=== PATIENT | female | born 1985 | race Caucasian/White ===

== ENCOUNTER 2016-10-09 07:00 | Emergency (ER) | payer BC ==
--- NOTE | 2016-10-09 08:05 | EDM.PDOC ---
ED HPI GENERAL MEDICAL PROBLEM - General Chief Complaint: Upper Extremity Injury/Pain Stated Complaint: DIFFICULTY WITH HANDS Time Seen by Provider: 10/09/16 07:50 - History of Present Illness INITIAL COMMENTS - FREE TEXT/NARRATIVE: HISTORY AND PHYSICAL: History of present illness: Patient is a 31-year-old white female presents with a concern of bilateral wrist and hand pain she does not recall any injury. There's been no fever chills nausea vomiting or other complaints. Review of systems: As per history of present illness and below otherwise all systems reviewed and negative. Past medical history: As per history of present illness and as reviewed below otherwise noncontributory. Surgical history: As per history of present illness and as reviewed below otherwise noncontributory. Social history: No reported history of drug or alcohol abuse. Family history: As per history of present illness and as reviewed below otherwise noncontributory. Physical exam: HEENT: Atraumatic, normocephalic, pupils reactive, negative for conjunctival pallor or scleral icterus, mucous membranes moist, throat clear, neck supple, nontender, trachea midline. Lungs: Clear to auscultation, breath sounds equal bilaterally, chest nontender. Heart: S1S2, regular, negative for clicks, rubs, or JVD. Abdomen: Soft, nondistended, nontender. Negative for masses or hepatosplenomegaly. Negative for costovertebral tenderness. Pelvis: Stable nontender. Genitourinary: Deferred. Rectal: Deferred. Extremities: Patient has tenderness noted bilaterally over the volar aspect of wrist worse with compression of her median nerve at the level of the volar aspect of the wrist. She states this is somewhat acute in onset and does radiate to her hands bilaterally Neuro: Awake, alert, oriented. Cranial nerves II through XII unremarkable. Cerebellum unremarkable. Motor and sensory unremarkable throughout. Exam nonfocal. Diagnostics: X-ray bilateral wrists/hands Therapeutics: Velcro splint bilateral wrist Impression: #1 bilateral wrist pain etiology be determined Definitive disposition and diagnosis as appropriate pending reevaluation and review of above. Bilateral Hand Pain Score (Numeric/FACES): 10 - Related Data Allergies Allergy/AdvReac Type Severity Reaction Status Date / Time No Known Allergies Allergy Verified 10/09/16 07:20 Home Meds: Home Meds . [No Known Home Meds] 01/04/15 [History] Past Medical History - Past Health History Medical/Surgical History: Denies Medical/Surgical History - Infectious Disease History Infectious Disease History: Reports: Chicken Pox - Past Surgical History GI Surgical History: Reports: Appendectomy Social & Family History - Family History Family Medical History: Noncontributory - Tobacco Use Smoking Status *Q: Never Smoker Years of Tobacco use: 20 Packs/Tins Daily: 0.1 Second Hand Smoke Exposure: No - Alcohol Use Days Per Week of Alcohol Use: 2 Number of Drinks Per Day: 6 Total Drinks Per Week: 12 - Recreational Drug Use Recreational Drug Use: No ED ROS GENERAL - Review of Systems Review Of Systems: ROS reveals no pertinent complaints other than HPI. ED EXAM, GENERAL - Physical Exam Exam: See Below (See dictation) Course - Vital Signs Last Recorded V/S: Last Vital Signs Temp 37.1 C 10/09/16 07:18 Pulse 111 H 10/09/16 07:18 Resp 18 10/09/16 07:18 BP 138/90 10/09/16 07:18 Pulse Ox 99 10/09/16 07:18 - Orders/Labs/Meds Orders: Active Orders 24 hr Category Date Time Status Hand 2V Lt [CR] Stat Exams 10/09/16 07:25 Ordered Hand 2V Rt [CR] Stat Exams 10/09/16 07:25 Ordered Wrist Comp Min 3V Lt [CR] Stat Exams 10/09/16 07:25 Ordered Wrist Comp Min 3V Rt [CR] Stat Exams 10/09/16 07:25 Ordered Departure - Departure Time of Disposition: 07:53 Disposition: Home, Self-Care 01 Condition: Good Clinical Impression: Wrist pain - Discharge Information Forms: ED Department Discharge Additional Instructions: The following information is given to patients seen in the emergency department who are being discharged to home. This information is to outline your options for follow-up care. We provide all patients seen in our emergency department with a follow-up referral. The need for follow-up, as well as the timing and circumstances, are variable depending upon the specifics of your emergency department visit. If you don't have a primary care physician on staff, we will provide you with a referral. We always advise you to contact your personal physician following an emergency department visit to inform them of the circumstance of the visit and for follow-up with them and/or the need for any referrals to a consulting specialist. The emergency department will also refer you to a specialist when appropriate. This referral assures that you have the opportunity for followup care with a specialist. All of these measure are taken in an effort to provide you with optimal care, which includes your followup. Under all circumstances we always encourage you to contact your private physician who remains a resource for coordinating your care. When calling for followup care, please make the office aware that this follow-up is from your recent emergency room visit. If for any reason you are refused follow-up, please contact the [facility] emergency department at and asked to speak to the emergency department charge nurse. [facility] [address] [place] [id number] Ultram as prescribed splints as directed follow-up hand surgery above is discussed to return as needed as discussed - My Orders Last 24 Hours: My Active Orders 10/09/16 07:25 Hand 2V Lt [CR] Stat Hand 2V Rt [CR] Stat Wrist Comp Min 3V Lt [CR] Stat Wrist Comp Min 3V Rt [CR] Stat - Assessment/Plan Last 24 Hours: My Active Orders 10/09/16 07:25 Hand 2V Lt [CR] Stat Hand 2V Rt [CR] Stat Wrist Comp Min 3V Lt [CR] Stat Wrist Comp Min 3V Rt [CR] Stat
[2016-10-09] MEDS ORDERED: Ketorolac 60 MG/2 ML SDV IM ONE (08:10)
--- NOTE | 2016-10-09 08:36 | CR ---
EXAMINATION: Left hand and left wrist HISTORY: Pain COMPARISON: None TECHNIQUE: 2 views of the left hand and 3 views of the left wrist. FINDINGS: There is no acute osseous abnormality, dislocation, or fracture identified. Bone mineraliz ation and joint spaces appear normal. Radiocarpal alignment is preserved. No focal soft tissue swelling. IMPRESSION: 1. No acute osseous abnormality identified.
--- NOTE | 2016-10-09 08:37 | CR ---
EXAMINATION: Right hand and right wrist HISTORY: Pain COMPARISON: None TECHNIQUE: 2 views of the right hand and 3 views of the right wrist FINDINGS: There is no acute osseous abnormality, dislocation, or fracture identified. Bone mineraliz ation and joint spaces appear normal. The radiocarpal alignment is preserved. No focal soft tissue swelling. IMPRESSION: No acute osseous abnormality noted.
[2016-10-09 08:49] VITALS: BP 116/76
== END 2016-10-09 08:47 | disposition home or self-care (01) ==
LOC: MW.ED 07:00
DX: M25.532 Pain in left wrist (principal); M25.531 Pain in right wrist; Z90.49 Acquired absence of other specified parts of digestive tract
CPT/HCPCS: 73110; 73120; 96372; 99283; J1885; 99282

== ENCOUNTER 2017-02-16 07:53 | Emergency (ER) | payer OTHER, BC ==
[2017-02-16] MEDS ORDERED: Ondansetron 4 MG Tab.DIS PO ONE (08:14)
--- NOTE | 2017-02-16 08:17 | EDM.PDOC ---
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 The patient states she was having a normal morning and had no systemic complaints and stepped out of her car slipped and fell on the ice impacting her but at the back of her head. She did briefly loss of consciousness and felt very nauseated but did not vomit. She currently complains of scalp pain as well as nausea and some lower back and buttock pain but no neurosensory changes or weakness no chest pain no neck or mid back pain. Patient is not concerned about her but her lower back but is more concerned about hitting her head. She does not feel confused or disoriented. Review of systems: As per history of present illness and below otherwise all systems reviewed and negative. Past medical history: As per history of present illness and as reviewed below otherwise noncontributory. Surgical history: As per history of present illness and as reviewed below otherwise noncontributory. Social history: No reported history of drug or alcohol abuse. Family history: As per history of present illness and as reviewed below otherwise noncontributory. Physical exam: Gen.: Well-developed well-nourished female speaking clearly and easily and vital signs of the note by me HEENT: Atraumatic with only minimal scalp tenderness at the occipital area but no palpable scalp deformities soft tissue swelling or bony deformities are appreciated, normocephalic, pupils reactive, negative for conjunctival pallor or scleral icterus, mucous membranes moist, throat clear, neck supple, nontender , trachea midline. There are no midline step-offs tenderness defects the cervical spine Lungs: Clear to auscultation, breath sounds equal bilaterally, chest nontender. Heart: S1S2, regular rate and rhythm no overt murmurs Abdomen: Soft, nondistended, nontender. NABS. Pelvis: Stable nontender. No lateral hip tenderness Genitourinary: Deferred. Rectal: Deferred. Extremities: Atraumatic, negative for cords or calf pain. Neurovascular unremarkable. Neuro: Awake, alert, oriented. Cranial nerves II through XII unremarkable. Cerebellum unremarkable. Motor and sensory unremarkable throughout. Exam nonfocal. Back: There are no midline step-offs or defects of the thoracic or lumbar spine and has no visible soft tissue injury of the lower back or buttocks area Diagnostics: CT scan of the head Therapeutics: Milady Patient offered Toradol or Tylenol for pain and she declines at this time Impression: Fall with closed head injury/mild concussion syndrome Definitive disposition and diagnosis as appropriate pending reevaluation and review of above. Headache Pain Score (Numeric/FACES): 8 Lower Back Pain Score (Numeric/FACES): 8 - Related Data Allergies Allergy/AdvReac Type Severity Reaction Status Date / Time No Known Allergies Allergy Verified 02/16/17 08:07 Home Meds: Home Meds . [No Known Home Meds] 01/04/15 [History] Past Medical History - Past Health History Medical/Surgical History: Denies Medical/Surgical History - Infectious Disease History Infectious Disease History: Reports: Chicken Pox - Past Surgical History GI Surgical History: Reports: Appendectomy Social & Family History - Family History Family Medical History: Noncontributory - Tobacco Use Smoking Status *Q: Never Smoker Years of Tobacco use: 20 Packs/Tins Daily: 0.1 Second Hand Smoke Exposure: No - Alcohol Use Days Per Week of Alcohol Use: 2 Number of Drinks Per Day: 6 Total Drinks Per Week: 12 - Recreational Drug Use Recreational Drug Use: No ED ROS GENERAL - Review of Systems Review Of Systems: ROS reveals no pertinent complaints other than HPI. ED EXAM, HEAD INJURY - Physical Exam Exam: See Below (See dictation) Course - Vital Signs Last Recorded V/S: Last Vital Signs Temp 36.3 C 02/16/17 08:04 Pulse 99 02/16/17 08:04 Resp 16 02/16/17 08:04 BP 124/84 02/16/17 08:04 Pulse Ox 98 02/16/17 08:04 - Orders/Labs/Meds Orders: Active Orders 24 hr Category Date Time Status Head wo Cont [CT] Stat Exams 02/16/17 08:14 Taken Meds: Medications Discontinued Medications Generic Name Dose Route Start Last Admin Trade Name Freq PRN Reason Stop Dose Admin Ondansetron HCl 4 mg 02/16/17 08:14 02/16/17 08:19 Zofran Odt PO 11/05/17 08:15 4 mg ONETIME ONE Administration Departure - Departure Time of Disposition: 09:04 Disposition: Home, Self-Care 01 Condition: Good Clinical Impression: Closed head injury Qualifiers: Encounter type: initial encounter Qualified Code(s): S09.90XA - Unspecified injury of head, initial encounter Concussion Qualifiers: Encounter type: initial encounter Loss of consciousness presence/duration: with LOC of 30 min or less Qualified Code(s): S06.0X1A - Concussion with loss of consciousness of 30 minutes or less, initial encounter - Discharge Information Forms: ED Department Discharge Additional Instructions: The following information is given to patients seen in the emergency department who are being discharged to home. This information is to outline your options for follow-up care. We provide all patients seen in our emergency department with a follow-up referral. The need for follow-up, as well as the timing and circumstances, are variable depending upon the specifics of your emergency department visit. If you don't have a primary care physician on staff, we will provide you with a referral. We always advise you to contact your personal physician following an emergency department visit to inform them of the circumstance of the visit and for follow-up with them and/or the need for any referrals to a consulting specialist. The emergency department will also refer you to a specialist when appropriate. This referral assures that you have the opportunity for followup care with a specialist. All of these measure are taken in an effort to provide you with optimal care, which includes your followup. Under all circumstances we always encourage you to contact your private physician who remains a resource for coordinating your care. When calling for followup care, please make the office aware that this follow-up is from your recent emergency room visit. If for any reason you are refused follow-up, please contact the [facility] emergency department at and ask to speak to the emergency department charge nurse. [facility] [address] [place] [id number] [facility] [address] [place] [address] Use Tylenol and ibuprofen for pain and apply ice to all areas that are sore or achy for the next 24 hours and then switch to heat. Use Zofran as prescribed and as needed for nausea and vomiting. Return to ER as needed and as discussed - My Orders Last 24 Hours: My Active Orders 02/16/17 08:14 Head wo Cont [CT] Stat - Assessment/Plan Last 24 Hours: My Active Orders 02/16/17 08:14 Head wo Cont [CT] Stat
[2017-02-16 09:17] VITALS: BP 132/89
--- NOTE | 2017-02-17 10:35 | CT ---
EXAM DATE: 02/16/17 PATIENT'S AGE: 32 Patient: GADIEL ALVARADO Facility: [place], [place] Site . Site : 1985 Study: CT Head WO CONT [id number]/[id number] 8:35:05 AM Ordering Physician: Jose Cruz Deluna Final Report: HISTORY: Fall. Head injury. Brief loss of consciousness. Technique: CT brain without contrast. Comparison: None. Findings: No acute intracranial hemorrhage. No extra-axial collection. No mass effect or midline shift. Brain parenchyma is within normal limits for age. Ventricular system is normal in caliber and morphology. Cisterns are patent. Calvarium is intact. Polypoid mucosal thickening in the maxillary sinuses, right greater than left. Visualized paranasal sinuses and mastoid air cells are otherwise clear. Extracranial soft tissues are unremarkable. Impression: No acute intracranial findings. Please note that all CT scans at this facility use dose modulation, iterative reconstruction, and/or weight-based dosing when appropriate to reduce radiation dose to as low as reasonably achievable. Dictated by Kalpesh De La Torre MD @ Feb 16 2017 8:56AM (Electronic Signature) Report Signed by Proxy. [facility]
== END 2017-02-16 09:13 | disposition home or self-care (01) ==
LOC: MW.ED 07:53
DX: S06.0X1A Concussion with loss of consciousness of 30 minutes or less, initial encounter (principal); W00.0XXA Fall on same level due to ice and snow, initial encounter
CPT/HCPCS: 70450; 99284; A9270; 99283

== ENCOUNTER 2018-10-09 20:52 | Emergency (ER) | payer BC, OTHER ==
--- NOTE | 2018-10-09 21:34 | EDM.PDOC ---
<Esperanza Up - Last Filed: 10/09/18 21:55> ED HPI GENERAL MEDICAL PROBLEM - General Chief Complaint: Back Pain or Injury Stated Complaint: BACK PAIN Time Seen by Provider: 10/09/18 20:54 Source of Information: Reports: Patient History Limitations: Reports: No Limitations - History of Present Illness INITIAL COMMENTS - FREE TEXT/NARRATIVE: HISTORY AND PHYSICAL: History of present illness: Patient is a 33-year-old female presenting today for left lower back pain that started a couple days ago. Patient states that the pain is constant and nothing makes it better. The pain is making it difficult to lift her left leg but the pain does not radiate. She tried Tylenol, ibuprofen, and ice without relief at home. She denies any trauma or injures. She denies urinary/bowel incontinence or retention or saddle anesthesia. Denies urinary frequency, urgency, or dysuria. She also reports hip discomfort where she feels like her hip needs to "pop". This sensation is intermittent and relieved with rest. Patient denies any health history or any other concerns. Patient denies fever, chills, chest pain, shortness of breath, or cough. Denies headache, neck stiff ness, change in vision, syncope, or near syncope. Denies nausea, vomiting, abdominal pain, diarrhea, or constipation. Has not noted any blood in urine or stool. Patient has been eating and drinking appropriately. Review of systems: As per history of present illness and below otherwise all systems reviewed and negative. Past medical history: As per history of present illness and as reviewed below otherwise noncontributory. Surgical history: As per history of present illness and as reviewed below otherwise noncontributory. Social history: See social history for further information Family history: As per history of present illness and as reviewed below otherwise noncontributory. Physical exam: General: Patient is alert, oriented, and in no acute distress. Patient sitting comfortably on exam table. HEENT: Atraumatic, normocephalic, pupils equal and reactive bilaterally, negative for conjunctival pallor or scleral icterus, mucous membranes moist, TMs normal bilaterally, throat clear, neck supple, nontender, trachea midline. No drooling or trismus noted. No meningeal signs. No hot potato voice noted. Lungs: Clear to auscultation, breath sounds equal bilaterally, chest nontender. Heart: S1S2, regular rate and rhythm without overt murmur Abdomen: Soft, nondistended, nontender. Negative for masses or hepatosplenomegaly. Negative for costovertebral tenderness. Pelvis: Stable nontender. Genitourinary: Deferred. Rectal: Deferred. Skin: Intact, warm, dry. No lesions or rashes noted. Musculoskeletal/Extremities: Atraumatic, negative for cords or calf pain. Neurovascular unremarkable. Pain to palpation of the paraspinous muscle of the left lumbar spine. No point tenderness to the complete spine / spinous processes. Full Rom of complete spine. No obvious deformations, crepitus, or step offs on palpation of complete spine. Full ROM and strength of the left hip with pain. PT/DP pulses grossly intact of left lower extremity. Cap refill <2 seconds. Neuro: Awake, alert, oriented. Cranial nerves II through XII unremarkable. Cerebellum unremarkable. Motor and sensory unremarkable throughout. Exam nonfocal. Notes: Discussed the importance of following up with primary care provider. Voices understanding and is agreeable to plan of care. Denies any further questions or concerns at this time. Diagnostics: UA, HCG, Lumbar X-ray, Hip xray Therapeutics: Noflex Toradol Prescription: Flexeril Diclofenac Impression: Low back pain, left Hip pain, left Plan: 1. Alternate Tylenol and ibuprofen as direct for pain and discomfort. 2. Follow up with primary care provider as discussed. Return to ED as needed and as discussed. Definitive disposition and diagnosis as appropriate pending reevaluation and review of above. back Pain Score (Numeric/FACES): 10 - Related Data Allergies Allergy/AdvReac Type Severity Reaction Status Date / Time No Known Allergies Allergy Verified 10/09/18 21:02 Home Meds: Home Meds . 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 ED EXAM,LOWER BACK PAIN/INJURY - Physical Exam Exam: See Below (see dictation) Course - Vital Signs Last Recorded V/S: Last Vital Signs Temp 36.3 C 10/09/18 20:53 Pulse 115 H 10/09/18 20:53 Resp 17 10/09/18 20:53 BP 136/83 10/09/18 20:53 Pulse Ox 100 10/09/18 20:53 - Orders/Labs/Meds Orders: Active Orders 24 hr Category Date Time Status Hip Min 1V Lt [CR] Stat Exams 10/09/18 21:44 Ordered Lumbar Spine 2 or 3V [CR] Stat Exams 10/09/18 21:21 Ordered Labs: Laboratory Tests 10/09/18 10/09/18 Range/Units 21:20 21:20 Urine Color YELLOW Urine Appearance CLEAR Urine pH 6.0 (5.0-8.0) Ur Specific [place] 1.025 (1.001-1.035) Urine Protein NEGATIVE (NEGATIVE) mg/dL Urine Glucose (UA) NEGATIVE (NEGATIVE) mg/dL Urine Ketones NEGATIVE (NEGATIVE) mg/dL Urine Occult Blood LARGE H (NEGATIVE) Urine Nitrite NEGATIVE (NEGATIVE) Urine Bilirubin NEGATIVE (NEGATIVE) Urine Urobilinogen 0.2 (<2.0) EU/dL Ur Leukocyte Esterase NEGATIVE (NEGATIVE) Urine RBC 8-10 (0-2/HPF) Urine WBC 0-1 (0-5/HPF) Ur Epithelial Cells RARE (NONE-FEW) Urine Bacteria RARE (NEGATIVE) Urine HCG, Qual NEGATIVE (NEGATIVE) Meds: Medications Discontinued Medications Generic Name Dose Route Start Last Admin Trade Name Freq PRN Reason Stop Dose Admin Ketorolac Tromethamine 60 mg 10/09/18 21:45 10/09/18 21:56 Toradol IM 10/09/18 21:46 60 mg ONETIME ONE Administration Orphenadrine Citrate 60 mg 10/09/18 21:44 10/09/18 21:56 Norflex IM 10/09/18 21:45 60 mg NOW STA Administration Departure - Departure Time of Disposition: 21:53 Disposition: Home, Self-Care 01 Clinical Impression: Hip pain, left Low back pain Qualifiers: Chronicity: acute Back pain laterality: left Sciatica presence: without sciatica Qualified Code(s): M54.5 - Low back pain - Discharge Information Referrals: PCP,None [Primary Care Provider] - Forms: ED Department Discharge Additional Instructions: The following information is given to patients seen in the emergency department who are being discharged to home. This information is to outline your options for follow-up care. We provide all patients seen in our emergency department with a follow-up referral. The need for follow-up, as well as the timing and circumstances, are variable depending upon the specifics of your emergency department visit. If you don't have a primary care physician on staff, we will provide you with a referral. We always advise you to contact your personal physician following an emergency department visit to inform them of the circumstance of the visit and for follow-up with them and/or the need for any referrals to a consulting specialist. The emergency department will also refer you to a specialist when appropriate. This referral assures that you have the opportunity for follow-up care with a specialist. All of these measure are taken in an effort to provide you with optimal care, which includes your follow-up. Under all circumstances we always encourage you to contact your private physician who remains a resource for coordinating your care. When calling for follow-up care, please make the office aware that this follow-up is from your recent emergency room visit. If for any reason you are refused follow-up, please contact the [facility] Emergency Department at and asked to speak to the emergency department charge nurse. [facility] [address] [place] [address] [id number] [address] [id number] 1. Alternate Tylenol and ibuprofen as direct for pain and discomfort. 2. Follow up with primary care provider as discussed. Return to ED as needed and as discussed. - My Orders Last 24 Hours: My Active Orders 10/09/18 21:21 Lumbar Spine 2 or 3V [CR] Stat 10/09/18 21:44 Hip Min 1V Lt [CR] Stat - Assessment/Plan Last 24 Hours: My Active Orders 10/09/18 21:21 Lumbar Spine 2 or 3V [CR] Stat 10/09/18 21:44 Hip Min 1V Lt [CR] Stat <Delmy Nguyen - Last Filed: 10/09/18 22:02> ED HPI GENERAL MEDICAL PROBLEM - History of Present Illness INITIAL COMMENTS - FREE TEXT/NARRATIVE: I have personally seen patient and agree with the above note. Patient is agreeable to plan of care without any questions or concerns at this time.
[2018-10-09] MEDS ORDERED: Ketorolac 60 MG/2 ML SDV IM ONE (21:45)
--- NOTE | 2018-10-09 23:03 | CR ---
INDICATION: Pain. No injury. COMPARISON: None. FINDINGS/IMPRESSION: Left hip, AP view only. No fracture identified. No destructive osseous lesions. Preservation of left hip joint space. Unremarkable left hemipelvis. Included soft tissues appear normal. Dictated by Humberto Us MD @ 10/09/2018 11:00:19 PM Dictated by: Humberto Us MD @ 10/09/2018 23:01:18 (Electronically Signed)
--- NOTE | 2018-10-09 23:05 | CR ---
INDICATION: pain, no injury LUMBAR SPINE FINDINGS: No acute fractures are identified. Disc spaces appear preserved. Osseous alignment is within normal limits and no subluxation is seen. Paravertebral soft tissues are unremarkable. IMPRESSION: No fracture, subluxation, or other acute finding identified. BREE JAIMES MD [employer] [facility] [facility] Dictated by: Humberto Jaimes MD @ 10/09/2018 23:03:13 (Electronically Signed)
[2018-10-09 23:08] VITALS: BP 138/91
== END 2018-10-09 23:09 | disposition home or self-care (01) ==
LOC: MW.ED 20:52
DX: M54.5 Low back pain (principal); M25.552 Pain in left hip; F17.210 Nicotine dependence, cigarettes, uncomplicated
CPT/HCPCS: 72100; 73501; 81001; 81025; 96372; 99283; J1885; J2360